=== PATIENT | female | born 1950 | race Caucasian/White ===

== ENCOUNTER → 2016-10-31 | Outpatient (CLI) | payer MEDICARE, MEDICAID | END | disposition disaster alternative care site (69) | LOC: GRAD 14:38 | DX: M25.561 Pain in right knee (principal); M79.89 Other specified soft tissue disorders; M66.0 Rupture of popliteal cyst; M17.11 Unilateral primary osteoarthritis, right knee; S83.8X1A Sprain of other specified parts of right knee, initial encounter ==